=== PATIENT | female | born 1940 | race Caucasian/White ===

== ENCOUNTER → 2022-12-05 | Outpatient (CLI) | payer OTHER, SELFPAY ==
--- NOTE | 2022-12-05 | DI.ECHO.S_ITS ---
[facility]---------+ [facility] +---------+ : : [address] : [place] [address] : : : : [id number] : : : : Phone: [phone]---------+ Echocardiogram Report + + :Name: MAYRA HOUSER Study Date: 12/05/2022 Height: 66.5 in: :[facility] ReadingLocation: Weight: 196 lb : : Gender: Female BSA: 2.0 m2 : :: 1940 Age: 82 yrs BP: 127/76 mmHg: :Reason For Study: ATRIAL FIBRILLATION : :Ordering Physician: JUNIOR, : :CASSIDY Montoya Performed By: Fide Garrett : :Referring: CASSIDY CARROLL : + + Interpretation Summary The ejection fraction is estimated to be 55-60%. Diastolic function could not be accurately assessed due to atrial fibrillation. The right ventricle is normal in size and function. Both atria are moderately dilated. There is mild aortic regurgitation. There is mild tricuspid regurgitation. Right ventricular systolic pressure is estimated to be 24 mmHg plus the clinically estimated CVP which cannot be estimated on this exam. Procedure: A two-dimensional transthoracic echocardiogram with color flow and Doppler was performed. The study quality was technically adequate. There is no prior echocardiogram noted for this patient. The patient was in atrial fibrillation with heart rates between 72-95 bpm during the exam. Left Ventricle: The left ventricle is normal in size and wall thickness. The ejection fraction is estimated to be 55-60%. Diastolic function could not be accurately assessed due to atrial fibrillation. Right Ventricle: The right ventricle is normal in size and function. Atria: Both atria are moderately dilated. There is no Doppler evidence for an interatrial shunt. Mitral Valve: The mitral valve is normal in structure and function. There is mild mitral annular calcification. There is trace mitral regurgitation. Aortic Valve: The aortic valve is trileaflet. The aortic valve is slightly calcified. There is no aortic valve stenosis. There is mild aortic regurgitation. Tricuspid Valve: The tricuspid valve is normal in structure and function. There is mild tricuspid regurgitation. Right ventricular systolic pressure is estimated to be 24 mmHg plus the clinically estimated CVP which cannot be estimated on this exam. Pulmonic Valve: The pulmonic valve leaflets are thin and pliable; valve motion is normal. There is a trace or physiologic amount of pulmonic regurgitation. Great Vessels: The aortic root is normal size. The dimensions of the ascending aorta are normal. The inferior vena cava was not well visualized. Pericardium/ Pleura There is no pericardial effusion. There is no pleural effusion. MMode/2D Measurements & Calculations LVIDd: 4.5 cm LVOT diam: 2.0 cm LVIDs: 3.3 cm Ao root diam: 3.0 cm FS: 25.4 % asc Aorta Diam: 3.5 cm IVSd: 1.0 cm Ao Arch Diam (Prox Trans): 3.6 cm LVPWd: 0.92 cm LV carlos. diameter/BSA (cm/m^2): 2.2 LV sys. diameter/BSA (cm/m^2): 1.7 LA A2 area: 25.8 cm2 RA long axis: 5.9 cm LA A4 area: 22.0 cm2 RA area: 21.8 cm2 LA length (vol): 6.2 cm RA vol: 68.5 ml LA vol: 77.3 ml RA : 34.3 ml/m2 LA vol index: 38.7 ml/m2 RVD1 (basal): 3.5 cm RVD2 (mid): 2.6 cm TAPSE: 1.8 cm Doppler Measurements & Calculations Ao V2 max: 160.3 cm/sec LVOT Max Reagan: 101.3 cm/sec Ao V2 mean: 128.3 cm/sec LV V1 max P.1 mmHg Ao max P.3 mmHg LV V1 VTI: 18.3 cm Ao mean P.0 mmHg NICOLASA(I,D): 1.8 cm2 Ao V2 VTI: 33.9 cm NICOLASA(V,D): 2.1 cm2 sev ratio: 0.54 NICOLASA indexed to BSA (cm^2/m^2): 0.88 AI P1/2t: 1082 msec AI dec slope: 103.7 cm/sec2 MV E max reagan: 98.0 cm/sec TR max reagan: 243.0 cm/sec MV A max reagan: 0.75 cm/sec TR max P.6 mmHg MV E/A: 129.9 PA V2 max: 101.8 cm/sec Med Peak E' Reagan: 9.3 cm/sec PA V2 mean: 69.8 cm/sec E/E' med: 10.5 PA mean P.2 mmHg Lat Peak E' Reagan: 7.8 cm/sec PA pr(Accel): 29.3 mmHg E/E' lat: 12.5 E/e' average: 11.5 MV dec time: 0.16 sec SV(LVOT): 59.8 ml Reading Physician:03:45 PM
== END ==
LOC: ECHO 13:39
PROVIDERS: PCP Physician Assistant; Referring Provider Internal Medicine Cardiovascular Disease; Visit Provider Internal Medicine Cardiovascular Disease
DX: I08.3 Combined rheumatic disorders of mitral, aortic and tricuspid valves (principal); I48.21 Permanent atrial fibrillation; Z86.73 Personal history of transient ischemic attack (TIA), and cerebral infarction without residual deficits
CPT/HCPCS: 93306; 93880

== ENCOUNTER → 2022-12-17 14:51 | Outpatient (CLI) | payer OTHER, SELFPAY ==
--- NOTE | 2022-12-17 | DI.US.S_ITS ---
PROCEDURE: US CAROTID DOPPLER BI INDICATIONS: AFIB / HISTORY OF TIA TECHNIQUE: Color and pulse Doppler interrogation was performed of both carotid systems, with image documentation and velocity measurements. COMPARISON: None. FINDINGS: Stenosis calculations are based on SRU (Society of Radiologists in Ultrasound) criteria. Right side: Brachial blood pressure: 134/82 mm Hg. Common carotid artery peak systolic velocity: 71 cm/sec. Internal carotid artery peak systolic velocity: 42 cm/sec. Internal carotid artery end diastolic velocity: 14 cm/sec. External carotid artery peak systolic velocity: 70 cm/sec. ICA/CCA peak systolic ratio: 0.6. Benson scale imaging description: No significant atherosclerotic plaques are seen. Percent internal carotid artery stenosis: Normal. Vertebral artery: Flow direction is antegrade. Left side: Brachial blood pressure: 144/80 mm Hg. Common carotid artery peak systolic velocity: 115 cm/sec. Internal carotid artery peak systolic velocity: 58 cm/sec. Internal carotid artery end diastolic velocity: 20 cm/sec. External carotid artery peak systolic velocity: 58 cm/sec. ICA/CCA peak systolic ratio: 0.5. Benson scale imaging description: Mild atherosclerotic plaques are seen in distal common carotid artery and origin of internal carotid artery. Percent internal carotid artery stenosis: Less than 50%. Vertebral artery: Flow direction is antegrade. IMPRESSION: 1. Less than 50% stenosis in proximal left internal carotid artery. 2. No stenosis is seen in right internal carotid artery. Dictated by: Leonardo Argueta M.D. on 12/17/2022 at 16:34 Approved by: Leonardo Argueta M.D. on 12/17/2022 at 16:37
== END ==
PROVIDERS: PCP Physician Assistant; Referring Provider Internal Medicine Cardiovascular Disease; Visit Provider Internal Medicine Cardiovascular Disease
DX: Z86.73 Personal history of transient ischemic attack (TIA), and cerebral infarction without residual deficits; I48.91 Unspecified atrial fibrillation; I65.22 Occlusion and stenosis of left carotid artery
CPT/HCPCS: 93880